=== PATIENT | female | born 1980 | race Caucasian/White ===

== ENCOUNTER 2019-09-06 19:30 | Emergency (ER) | payer OTHER ==
[~2019-09-06] VITALS: Ht 162.6 cm; Wt 90.7 kg
[2019-09-06 19:34] VITALS: BP 114/62
[2019-09-06] MEDS ORDERED: ABILIFY 5 MG TAB5 M1 PO (19:40)
[2019-09-06] MEDS ORDERED: LAMICTAL 25 MG25 MG PO (19:40)
[2019-09-06] MEDS ORDERED: MELOXICAM15 MG PO (19:41)
[2019-09-06] MEDS ORDERED: PROTONIX40 M2 PO (19:41)
[2019-09-06] MEDS ORDERED: CYMBALTA60 MG PO (19:54)
[2019-09-06] MEDS ORDERED: NORFLEX100 MG PO (19:56)
== END 2019-09-06 20:12 | disposition home or self-care (01) ==
LOC: EDSEX 19:30 → M.ERS 19:30
DX: M79.7 Fibromyalgia (principal); Z90.49 Acquired absence of other specified parts of digestive tract

== ENCOUNTER 2019-10-09 17:37 | Emergency (ER) | payer OTHER ==
[~2019-10-09] VITALS: Ht 162.6 cm; Wt 93.0 kg
[~2019-10-09 17:37] MED LIST: ABILIFY 5 MG TAB5 M1 PO; CYMBALTA60 MG PO; LAMICTAL 25 MG25 MG PO; MELOXICAM15 MG PO; NORFLEX100 MG PO; PROTONIX40 M2 PO
[2019-10-09] MEDS ORDERED: OMEPRAZOLE 20 M20 M1 PO (17:53)
[2019-10-09 18:13] LABS: ABSOLUTE BASOPHILS 0.1 thou/uL (0.0-0.2); ABSOLUTE EOSINOPHILS 0.2 thou/uL (0.0-0.7); ABSOLUTE LYMPHOCYTES 2.5 thou/uL (0.8-5.3); ABSOLUTE MONOCYTES 0.6 thou/uL (0.0-1.2); ABSOLUTE NEUTROPHILS 5.4 thou/uL (1.6-8.1); EOSINOPHILS 2.4 %; HEMATOCRIT 42.1 % (37.0-47.0); HEMOGLOBIN 14.4 gm/dL (12.0-15.0); LYMPHOCYTES 28.3 %; MCH 31.8 pg (26.0-34.0); MCHC 34.3 g/dL (28.0-37.0); MCV 92.6 fL (80.0-100.0); MONOCYTES 6.4 %; MPV 8.5 fl. (7.2-11.1); NUCLEATED RBCS 0 /100WBC; PLATELET COUNT* 287 thou/uL (150-400); POLYS 61.9 %; RBC 4.54 mil/uL (4.20-5.00); RDW-CV 13.6 % (10.5-14.5); WBC 8.7 thou/uL (4.0-11.0)
[2019-10-09 18:27] LABS: CALCIUM 8.4 mg/dL (8.5-10.1); POTASSIUM 3.5 mmol/L (3.5-5.1)
[2019-10-09 18:31] LABS: ALBUMIN 3.9 g/dL (3.4-5.0); TOTAL BILIRUBIN 0.2 mg/dL (<0.1-1.0); TOTAL PROTEIN 7.6 g/dL (6.4-8.2)
[2019-10-09] MEDS ORDERED: NORCO 5-325 TA1 EAC2 PO (19:39)
[2019-10-09] MEDS ORDERED: FLAGYL500 M1 PO (19:39)
[2019-10-09] MEDS ORDERED: ONDANSETRON ODT4 MG PO (19:39)
[2019-10-09 19:55] LABS: URINE BILIRUBIN NEGATIVE (Negative); URINE BLOOD TRACE (Negative); URINE CLARITY CLEAR; URINE COLOR YELLOW; URINE GLUCOSE-RANDOM NEGATIVE (Negative); URINE KETONES NEGATIVE (Negative); URINE LEUKOCYTES-REFLEX NEGATIVE (Negative); URINE NITRITE-REFLEX NEGATIVE (Negative); URINE PROTEIN NEGATIVE (Negative); URINE SPECIFIC GRAVITY <= 1.005 (1.005-1.030); URINE UROBILINOGEN 0.2 E.U./dl (0.2-1.0)
[2019-10-09 20:33] VITALS: BP 132/82
--- NOTE | 2019-10-10 09:20 | EKG ---
[place] [address] ELECTROCARDIOGRAM REPORT Name: RUDIJULIANRAJIV DEL RIO Room: [facility]#: [id number] Admission: 10/09/19 Attend Phys: Discharge: 10/09/19 Date of : 78 Date of Service: 10/09/19 1833 Report #: [id number] THIS REPORT FOR: //name// [facility] ED Test Date: 2019-10-09 Test Time: 18:33:19 Pat Name: RAJIV HUMPHREYS Department: Room: Gender: F Social Worker Aide: : 1980 Requested By: Kyung Marsh Order Number: [id number] MD: Pito Patino Measurements Intervals [place] Rate: 85 P: 46 VA: 181 QRS: -29 QRSD: 99 T: 31 QT: 379 QTc: 451 Interpretive Statements Sinus rhythm artifact noted Borderline left axis deviation No previous ECG available for comparison Electronically Signed On 10-10-2019 9:20:25 CDT by Pito Patino [email or web address] <ELECTRONICALLY SIGNED> By: Pito Patino MD, [facility] 10/10/1920 32 32 Pito Patino MD, [facility] /EPI
== END 2019-10-09 20:33 | disposition home or self-care (01) ==
LOC: M.ERS 17:37
PROVIDERS: Physician Assistant
DX: N83.8 Other noninflammatory disorders of ovary, fallopian tube and broad ligament (principal); R11.2 Nausea with vomiting, unspecified; M79.7 Fibromyalgia; Z20.828 Contact with and (suspected) exposure to other viral communicable diseases; Z90.49 Acquired absence of other specified parts of digestive tract; Z88.8 Allergy status to other drugs, medicaments and biological substances

== ENCOUNTER 2019-10-26 21:18 | Emergency (ER) | payer OTHER ==
[~2019-10-26] VITALS: Ht 162.6 cm; Wt 93.0 kg
[~2019-10-26 21:18] MED LIST changes: +FLAGYL500 M1 PO; +NORCO 5-325 TA1 EAC2 PO; +OMEPRAZOLE 20 M20 M1 PO; +ONDANSETRON ODT4 MG PO
[2019-10-26] MEDS ORDERED: MOBIC7.5 MG PO (21:37)
[2019-10-26] MEDS ORDERED: LAMOTRIGINE250 MG PO (21:37)
[2019-10-26 21:48] LABS: URINE BILIRUBIN NEGATIVE (Negative); URINE BLOOD 3+ (Negative); URINE CLARITY CLEAR; URINE COLOR YELLOW; URINE GLUCOSE-RANDOM NEGATIVE (Negative); URINE KETONES TRACE (Negative); URINE LEUKOCYTES-REFLEX NEGATIVE (Negative); URINE NITRITE-REFLEX NEGATIVE (Negative); URINE PROTEIN NEGATIVE (Negative); URINE SPECIFIC GRAVITY >= 1.030 (1.005-1.030); URINE UROBILINOGEN 0.2 E.U./dl (0.2-1.0)
[2019-10-26 21:56] LABS: SQUAMOUS >10 Many /LPF (0-3); URINE RBC >20 Many /HPF (0-2)
[2019-10-26 21:57] LABS: CALCIUM OXALATE >10 Many /LPF (None Seen); CASTS None Seen /LPF (None Seen)
[2019-10-26 21:58] LABS: BACTERIA-REFLEX None Seen /HPF (None Seen); MUCUS None Seen strn/LPF (None Seen); URINE WBC-REFLEX 0-5 Rare /HPF (0-5)
[2019-10-26 22:04] LABS: AMP/METHAMP Negative (Negative); BARBITURATES Negative (Negative); BENZODIAZEPINES Negative (Negative); COCAINE Negative (Negative); METHADONE Negative (Negative); OPIATES Negative (Negative); PCP Negative (Negative); THC POSITIVE (Negative)
[2019-10-26] MEDS ORDERED: FLEXERIL PO (23:31)
[2019-10-26] MEDS ORDERED: ULTRAM 50MG TAB50 MG PO (23:31)
[2019-10-26 23:52] VITALS: BP 124/70
== END 2019-10-26 23:52 | disposition home or self-care (01) ==
LOC: M.ERS 21:18
PROVIDERS: Emergency Medicine
DX: M25.551 Pain in right hip (principal); M54.5 Low back pain; R10.31 Right lower quadrant pain; M79.7 Fibromyalgia; Z90.49 Acquired absence of other specified parts of digestive tract; Z88.8 Allergy status to other drugs, medicaments and biological substances

== ENCOUNTER 2020-04-23 14:25 | Emergency (ER) | payer OTHER ==
[~2020-04-23] VITALS: Ht 162.6 cm; Wt 95.3 kg
[~2020-04-23 14:25] MED LIST changes: +FLEXERIL PO; +LAMOTRIGINE250 MG PO; +MOBIC7.5 MG PO; +ULTRAM 50MG TAB50 MG PO
[2020-04-23] MEDS ORDERED: HYDROCODON-ACE1 EAC7 PO ×2 (14:49→15:34)
[2020-04-23 15:53] VITALS: BP 132/88
== END 2020-04-23 15:55 | disposition home or self-care (01) ==
LOC: M.ERS 14:25 → EDSEX 14:25 → M.ERS 15:55
DX: S22.32XA Fracture of one rib, left side, initial encounter for closed fracture (principal); M25.462 Effusion, left knee; Z88.8 Allergy status to other drugs, medicaments and biological substances; Z90.49 Acquired absence of other specified parts of digestive tract; W00.1XXA Fall from stairs and steps due to ice and snow, initial encounter; Y93.89 Activity, other specified; Y92.89 Other specified places as the place of occurrence of the external cause; Y99.8 Other external cause status

== ENCOUNTER 2020-05-24 13:40 | Emergency (ER) | payer OTHER ==
[~2020-05-24] VITALS: Ht 160 cm; Wt 93.0 kg
[~2020-05-24 13:40] MED LIST changes: +HYDROCODON-ACE1 EAC7 PO
[2020-05-24] MEDS ORDERED: IBUPROFEN 800800 M1 PO (15:06)
[2020-05-24 15:18] VITALS: BP 138/82
== END 2020-05-24 15:19 | disposition home or self-care (01) ==
LOC: M.ERS 13:40
DX: S63.691A Other sprain of left index finger, initial encounter (principal); X50.1XXA Overexertion from prolonged static or awkward postures, initial encounter; Y93.89 Activity, other specified; Y92.89 Other specified places as the place of occurrence of the external cause; Y99.8 Other external cause status

== ENCOUNTER 2020-06-23 14:21 | Emergency (ER) | payer OTHER ==
[~2020-06-23] VITALS: Ht 162.6 cm; Wt 95.3 kg
[~2020-06-23 14:21] MED LIST changes: +IBUPROFEN 800800 M1 PO
[2020-06-23 14:45] LABS: URINE BILIRUBIN NEGATIVE (Negative); URINE BLOOD 1+ (Negative); URINE CLARITY CLEAR; URINE COLOR YELLOW; URINE GLUCOSE-RANDOM NEGATIVE (Negative); URINE KETONES NEGATIVE (Negative); URINE LEUKOCYTES-REFLEX NEGATIVE (Negative); URINE NITRITE-REFLEX NEGATIVE (Negative); URINE PROTEIN NEGATIVE (Negative); URINE SPECIFIC GRAVITY >= 1.030 (1.005-1.030); URINE UROBILINOGEN 0.2 E.U./dl (0.2-1.0)
[2020-06-23] MEDS ORDERED: METHOCARBAMOL500 M2 PO (14:52)
[2020-06-23 15:02] VITALS: BP 141/70
[2020-06-23 15:02] LABS: BACTERIA-REFLEX 1-9 Few /HPF (None Seen); CASTS None Seen /LPF (None Seen); CRYSTALS None Seen /LPF (None Seen); SQUAMOUS 0-3 Few /LPF (0-3); URINE RBC 0-2 Rare /HPF (0-2); URINE WBC-REFLEX 0-5 Rare /HPF (0-5)
== END 2020-06-23 15:03 | disposition home or self-care (01) ==
LOC: M.ERS 14:21
PROVIDERS: Nurse Practitioner Family
DX: S39.011A Strain of muscle, fascia and tendon of abdomen, initial encounter (principal); Z90.49 Acquired absence of other specified parts of digestive tract; Z88.8 Allergy status to other drugs, medicaments and biological substances; X58.XXXA Exposure to other specified factors, initial encounter; Y93.89 Activity, other specified; Y92.89 Other specified places as the place of occurrence of the external cause; Y99.8 Other external cause status

== ENCOUNTER 2020-08-09 10:43 | Emergency (ER) | payer OTHER ==
[~2020-08-09] VITALS: Ht 162.6 cm; Wt 90.7 kg
[~2020-08-09 10:43] MED LIST changes: +METHOCARBAMOL500 M2 PO
[2020-08-09 11:36] LABS: URINE BILIRUBIN NEGATIVE (Negative); URINE BLOOD 1+ (Negative); URINE CLARITY CLEAR; URINE COLOR YELLOW; URINE GLUCOSE-RANDOM NEGATIVE (Negative); URINE KETONES NEGATIVE (Negative); URINE LEUKOCYTES-REFLEX NEGATIVE (Negative); URINE NITRITE-REFLEX NEGATIVE (Negative); URINE PROTEIN NEGATIVE (Negative); URINE SPECIFIC GRAVITY >= 1.030 (1.005-1.030); URINE UROBILINOGEN 0.2 E.U./dl (0.2-1.0)
[2020-08-09 11:42] LABS: SQUAMOUS 4-10 Moderate /LPF (0-3); URINE RBC 0-2 Rare /HPF (0-2); URINE WBC-REFLEX None Seen /HPF (0-5)
[2020-08-09 11:43] LABS: CASTS None Seen /LPF (None Seen); CRYSTALS None Seen /LPF (None Seen); MUCUS 4-6 Moderate strn/LPF (None Seen)
[2020-08-09] MEDS ORDERED: NORCO5 PO ×2 (11:52→11:56)
[2020-08-09] MEDS ORDERED: MEDROLDOSEPACK PO (11:52)
[2020-08-09] MEDS ORDERED: IBUPROFEN 800800 M1 PO (11:52)
[2020-08-09 12:05] VITALS: BP 123/84
== END 2020-08-09 12:05 | disposition home or self-care (01) ==
LOC: M.ERS 10:43
PROVIDERS: Nurse Practitioner Family
DX: M54.42 Lumbago with sciatica, left side (principal); M54.41 Lumbago with sciatica, right side; Z88.8 Allergy status to other drugs, medicaments and biological substances; Z90.49 Acquired absence of other specified parts of digestive tract; Z79.899 Other long term (current) drug therapy

== ENCOUNTER 2020-08-28 09:03 | Emergency (ER) | payer OTHER ==
[~2020-08-28] VITALS: Ht 162.6 cm; Wt 90.7 kg
[~2020-08-28 09:03] MED LIST changes: +MEDROLDOSEPACK PO; +NORCO5 PO
[2020-08-28] MEDS ORDERED: INDOMETHACIN 2525 MG PO (09:41)
[2020-08-28] MEDS ORDERED: NORCO5 PO (09:41)
[2020-08-28 10:01] VITALS: BP 140/71
== END 2020-08-28 10:03 | disposition home or self-care (01) ==
LOC: M.ERS 09:03
DX: M25.561 Pain in right knee (principal); M79.7 Fibromyalgia; Z88.8 Allergy status to other drugs, medicaments and biological substances; Z90.49 Acquired absence of other specified parts of digestive tract

== ENCOUNTER 2020-09-05 21:09 | Emergency (ER) | payer OTHER ==
[~2020-09-05] VITALS: Ht 162.6 cm; Wt 90.7 kg
[~2020-09-05 21:09] MED LIST changes: +INDOMETHACIN 2525 MG PO
[2020-09-05] MEDS ORDERED: APAP W/CODEINE1 TA2 PO (21:52)
[2020-09-05] MEDS ORDERED: AUGMENTIN 875-1 EACH PO (21:53)
[2020-09-05 22:19] VITALS: BP 125/65
== END 2020-09-05 22:21 | disposition home or self-care (01) ==
LOC: M.ERS 21:09
DX: S51.852A Open bite of left forearm, initial encounter (principal); S71.152A Open bite, left thigh, initial encounter; M79.7 Fibromyalgia; Z90.49 Acquired absence of other specified parts of digestive tract; Z88.8 Allergy status to other drugs, medicaments and biological substances; W54.0XXA Bitten by dog, initial encounter; Y93.89 Activity, other specified; Y92.89 Other specified places as the place of occurrence of the external cause; Y99.8 Other external cause status